=== PATIENT | female | born 1975 | race Hispanic/Latino ===

== ENCOUNTER → 2019-09-19 | Day surgery (SDC) | payer BC ==
[~2019-09-19] MED LIST: ACETAMINOPHEN 1000 MG/100 ML 100 ML IV ONE; BETAMETHASONE DISODIUM PHOS 6 MG/ML VIAL ONE; BUPIVACAINE HCL 0.5% INJ 30 ML VIAL INJ ONE; CEFAZOLIN SOD 1 GM/NS 50ML 100 ML IV ONE; DEXAMETHASONE SOD PHOS INJ 4 MG/ML VIAL ONE; FENTANYL CITRATE/PF 100MCG/2 ML INJ ONE; HYDROMORPHONE 1MG/1ML INJ ONE; HYDROMORPHONE 2MG/ML 2 MG/ML ML ONE; KETOROLAC TROMETHAMINE 30 MG/ML VIAL ONE; LIDOCAINE HCL 1% LOCAL INJ 20 ML VIAL ONE; LIDOCAINE HCL 2% LOCAL INJ 5 ML SDV VIAL INJ ONE; MIDAZOLAM HCL 2 MG/2 ML VIAL ONE; MUPIROCIN 2% OINT 22 GM TUBE ONE; ONDANSETRON HCL INJ 2MG/ML 2ML 2 MG/ML VIAL ONE; PROPOFOL IV EMULSION 10 MG/ML 20 ML VIAL ONE; SEVOFLURANE INHAL SOLN 250 ML PEN BTL ONE
[2019-09-19 06:36] LABS: BASOPHILS % 0.4 % (0.0-1.0); EOSINOPHILS # (AUTO) 0.2 (0.0-0.4); EOSINOPHILS % 2.5 % (0.0-6.0); HEMATOCRIT 43.7 % (34.2-44.1); HEMOGLOBIN 13.9 g/dL (12.0-16.0); LYMPHOCYTES # (AUTO) 1.8 (1.0-3.2); MEAN CORPUSCULAR HEMOGLOBIN 25.7 pg (28-32); MEAN CORPUSCULAR HGB CONC 31.8 g/dL (31-35); MEAN CORPUSCULAR VOLUME 80.9 fL (81-99); MONOCYTES # (AUTO) 0.5 (0.2-0.8); MONOCYTES % 6.2 % (4.4-11.3); NEUTROPHILS # (AUTO) 5.1 (2.1-6.9); NEUTROPHILS % 66.8 % (38.7-80.0); PLATELET COUNT 274 x10e3/uL (140-360); RED CELL DISTRIBUTION WIDTH 16.3 % (11.7-14.4)
--- NOTE | 2019-09-19 07:07 | Diagnostic Imaging Report ---
EXAMINATION: CHEST 2 VIEWS INDICATION: Preop COMPARISON: None FINDINGS: PA and lateral views TUBES and LINES: None. LUNGS: Lungs are well inflated. Lungs are clear. There is no evidence of pneumonia or pulmonary edema. PLEURA: No pleural effusion or pneumothorax. HEART AND MEDIASTINUM: The cardiomediastinal silhouette is unremarkable. BONES AND SOFT TISSUES: No acute osseous lesion. Soft tissues are unremarkable. Degenerative changes in the spine. Nonhealed deformity at the lateral clavicle/coracoid with right at least grade 3 acromioclavicular separation. UPPER ABDOMEN: No free air under the diaphragm. IMPRESSION: No acute intrathoracic radiographic abnormality. Nonhealed deformity at the right lateral clavicle/coracoid with at least grade 3 acromioclavicular separation. Signed by: Jose García DO on 09/19/2019 7:03 AM
[2019-09-19 07:10] LABS: ANION GAP 13.1 mmol/L (8-16); BLOOD UREA NITROGEN 14 mg/dL (7-26); BUN/CREATININE RATIO 14 (6-25); CALCIUM 9.4 mg/dL (8.4-10.2); CARBON DIOXIDE 25 mmol/L (22-29); CHLORIDE 105 mmol/L (98-107); CREATININE, SERUM 0.98 mg/dL (0.57-1.11); EST GLOMERULAR FILTRATION RATE > 60 ML/MIN (60-); GLUCOSE 84 mg/dL (74-118); POTASSIUM 4.1 mmol/L (3.5-5.1); SODIUM 139 mmol/L (136-145)
[2019-09-19 09:50] VITALS: BP 137/95
--- NOTE | 2019-09-19 09:52 | Diagnostic Imaging Report ---
EXAMINATION: FOOT LEFT AP LAT INDICATION: Postoperative COMPARISON: None FINDINGS: AP and lateral radiographs of the left foot demonstrate postoperative findings of first metatarsal corrective osteotomy, K wire fixation of the fourth digit with wire traversing the proximal and distal interphalangeal joints, and fifth digit osteotomy. No unexpected fracture. Alignment appears near-anatomic. Overlying splint material obscures fine bony detail. IMPRESSION: Postoperative findings of the left foot as above. Signed by: Seamus Crain MD on 09/19/2019 9:48 AM
--- NOTE | 2019-09-19 15:21 | Operative Report ---
DATE OF PROCEDURE: 09/19/2019 SURGEON: Curt Xie DPM PREOPERATIVE DIAGNOSES: 1. Painful hallux valgus deformity, left foot. 2. Painful contracted hammertoe 4th digit, left foot. 3. Painful contracted hammertoe 5th digit, left foot. 4. Painful tailor's bunion, left foot. 5. 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 6. Mulligan's neuromas with neuralgia, 3rd interspace, left foot. POSTOPERATIVE DIAGNOSES: Confirmed. OPERATIVE PROCEDURES: 1. Fred bunionectomy with screw fixation of left foot. 2. Arthroplasty of 4th digit with K-wire fixation, left foot. 3. Arthroplasty of 5th digit, left foot. 4. Tailor's bunionectomy. 5. Neurolysis intermetatarsal nerve, 2nd interspace, left foot. 6. Neurolysis intermetatarsal nerve, 3rd interspace, left foot. 7. Intraoperative use of fluoroscopy. 8. Trigger point shot of cortisone. 9. Application of posterior splint. ANESTHESIA: General. HEMOSTASIS: Pneumatic thigh tourniquet at 350 mmHg. PROCEDURE IN DETAIL: The patient was taken into the operating room and placed on the operative table in supine position. Following induction of general anesthesia by the anesthesiologist, Webril wraps were placed on the patient's left thigh followed by application of left thigh tourniquet. The left lower extremity was then prepped and draped in the usual aseptic manner and following procedures were then performed. Procedure #1: Fred bunionectomy with screw fixation of left foot. Attention was directed to the dorsomedial aspect of the 1st MPJ, where a 6 cm linear incision was performed. Incision was deepened down to the joint capsule. Longitudinal capsulotomy was then performed exposing the dorsomedial exostosis of the 1st metatarsal head. Via the use of an oscillating saw, dorsomedial exostosis was excised from the operation site in toto. A V-osteotomy was then performed from medial to lateral. Capital fragment was then transpositioned laterally upon adequate surgical and anatomic reduction utilizing proper AO technique, a 2.0, 16 mm cortical screw in conjunction with a buried 0.045 K-wire was used to achieve stability of osteotomy site. Prior to that, a lateral release was performed consisting of lateral capsulotomy and adductor tendon release to the 1st interspace of the left foot. Proper alignment and range of motion was noted after the transposition of the capital fragment and proper AO fixation. Procedures #2 and 3: Arthroplasty of 4th and 5th digits with K-wire fixation of the 4th. Attention was then directed to the dorsal aspect of the above-mentioned toes, where a 3 cm linear incision was performed. Incision was deepened down to the joint capsule. Transverse capsulotomy was then performed exposing the head of the proximal phalanxes. Via the use of an oscillating saw, head of the proximal phalanxes were excised from the operation site in toto. All rough and bony edges were rasped smooth. Fourth toe was still noted to be contracted, so a 0.045 K-wire was introduced up to the metatarsophalangeal joint to achieve proper anatomic reduction. Procedure #4: Tailor's bunionectomy, left foot. Attention was then directed to the dorsolateral aspect of the 5th metatarsophalangeal joint, where a 6 cm linear incision was performed. Lateral capsulotomy was then performed exposing the dorsolateral exostosis of the 5th metatarsal head. Via the use of an oscillating saw and rotating bur, dorsolateral exostosis was excised from the operation site in toto. All rough and bony edges were rasped smooth via the use of a rotating bur. Procedure #5 and 6: Neurolysis of the 2nd and 3rd interspaces of the left foot. Attention was then directed to the interspaces of the 2nd and 3rd interspace of the left foot, where a stab incision was performed measuring approximately 1 cm in diameter to the interspaces. Utilizing a KobyGard separator, the KobyGard separator was introduced to the 2nd and 3rd interspaces. Then, the KobyGard was introduced and utilizing a KobyGard blade, the intermetatarsal ligament to the 2nd and 3rd interspaces of the left lower extremity were cut allowing the neurolysis of the 2nd and 3rd interspace intermetatarsal nerves. All areas were then copiously flushed with sterile antibiotic solution and suctioned. Procedure #7: Intraoperative use of fluoroscopy was then used to make sure proper alignment and fixation was achieved. Closure was then obtained utilizing 3-0 Vicryl, 4-0 Vicryl, and 4-0 nylon for capsule, subcutaneous tissue, and skin respectively. Procedure #8: Trigger point shot of cortisone was then given to the 2nd, 3rd, and 4th interspace of the right lower extremity. Then, approximately 15 mL of 0.5% plain Marcaine plus 10 mL of 1% Xylocaine plain were then used to achieve local anesthesia of above-mentioned surgical area. Sterile dressing was applied. Upon release of the thigh tourniquet, blood hyperemia was noted immediate to all digits of the patient's left foot. Procedure #9: Application of posterior splint. A properly placed posterior splint was then applied keeping the foot at 90 degrees with respect to the leg to try for any type of postop complications. The patient was then transferred from the OR to recovery room with vital signs stable and neurovascular status intact. No intraoperative complications were encountered. Blood loss from the surgery was minimal. The patient is to remain nonweightbearing with the aid of crutches, keep her foot elevated, and is to apply an ice pack to the ankle joint area. CHUCHO Suggs/SOLANGE /[id number]
== END | disposition home or self-care (01) ==
LOC: OR 05:35
PROVIDERS: ATTEND Podiatrist Foot Surgery
DX: M20.12 Hallux valgus (acquired), left foot (principal); M20.42 Other hammer toe(s) (acquired), left foot; M21.6X9 Other acquired deformities of unspecified foot; M79.672 Pain in left foot; G58.8 Other specified mononeuropathies; Z01.810 Encounter for preprocedural cardiovascular examination; Z01.812 Encounter for preprocedural laboratory examination; Z01.811 Encounter for preprocedural respiratory examination; D64.9 Anemia, unspecified
CPT/HCPCS: 28110; 28285 ×2; 28296; 36415; 64722; 71046; 73620; 80048; 85025; 93005; C1713 ×2; J0131; J0690; J0720; J1100; J1170 ×2; J1885; J2001 ×2; J2250; J2405; J2704; J3010